=== PATIENT | female | born 1950 | race American Indian/Alaskan Native ===

== ENCOUNTER 2016-08-28 20:32 | Emergency (ER) | payer MEDICARE ==
[2016-08-28 20:49] VITALS: BP 156/81
[2016-08-29] MEDS ORDERED: TYLENOL #3 PO ONE (01:00)
--- NOTE | 2016-08-29 01:10 | Emergency Department Report ---
Chief Complaint: Skin/Abscess/Foreign Body Stated Complaint: ABSCESS UNDER ARMPIT/L ARM PAIN Time Seen by Provider: 08/29/16 00:15 - HPI History of Present Illness: Patient with Hx of presents with daughter for evaluation of abscess to her right armpit 2-3 weeks. Also would like eval of her right shoulder pain and difficulty lifting it. She reports hx of fracture to the right shoulder and falling on same shoulder 4 weeks ago. - Exam Vital Signs: Vital Signs 08/28/16 20:43 Temperature 99 F Pulse Rate 83 Respiratory 20 Rate Blood Pressure 156/81 O2 Sat by Pulse 99 Oximetry Physical Exam: General: NAD. Extremities: + deformity of RUE. + baseball size abscess to right axilla. + decreased ROM in RUE. MSE screening note: Focused history and physical exam performed. Due to findings the following was ordered: Patient discussed with doctor:: TONIA ELMUS (cancel CT. Get Xray.) ED Medical Decision Making - Medical Decision Making Patient to be seen by Chris in main ED. ED Disposition for MSE Condition: Stable Referrals: PRIMARY CARE, [Primary Care Provider] - 3-5 Days
--- NOTE | 2016-08-29 01:55 | XRay Report ---
FINAL REPORT PROCEDURE: XR CHEST 1V AP TECHNIQUE: Chest radiograph anteroposterior view. CPT 82621 HISTORY: R axilla abscess. COMPARISON: No prior studies are available for comparison. FINDINGS: Heart: Normal. Mediastinum/Vessels: Normal. Lungs/Pleural space: Normal. Bony thorax: No acute osseous abnormality. Life support devices: None. IMPRESSION: No acute cardiopulmonary abnormality.
--- NOTE | 2016-08-29 01:58 | XRay Report ---
FINAL REPORT PROCEDURE: XR HUMERUS 2 RT TECHNIQUE: RIGHT humerus radiographs, AP and lateral views. HISTORY: right shoulder pain/deformity COMPARISON: No prior studies are available for comparison. 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 There is slight angulation of the fracture fragments. 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 Soft tissues: There is generalized soft tissue swelling. There is no mass. Bone mineralization: Normal. Foreign bodies: None. 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 There is slight angulation of the fracture fragments. 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 There is generalized soft tissue swelling. There is no mass.
--- NOTE | 2016-08-29 02:03 | XRay Report ---
FINAL REPORT PROCEDURE: XR SHOULDER 2 RT TECHNIQUE: RIGHT shoulder radiographs including AP views in internal and external rotation. CPT 18550 HISTORY: R shoulder pain/deformity COMPARISON: No prior studies are available for comparison. 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 The glenohumeral joint is intact.. Joint space(s): There is mild degenerative arthrosis of the glenohumeral joint.. Soft tissues: Normal . Bone mineralization: Normal . Foreign bodies: None . 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 The glenohumeral joint is intact.. There is mild degenerative arthrosis of the glenohumeral joint..
[2016-08-29] MEDS ORDERED: XYLOCAINE 2%/ EPI 1:200,000 INFILTRATI ONE (02:05)
[2016-08-29] MEDS ORDERED: XYLOCAINE 2%/EPI 1:100,000 INFILTRATI ONE (02:06)
[2016-08-29] MEDS ORDERED: VIBRAMYCIN PO ONE (03:59)
[2016-08-29] MEDS ORDERED: NORCO 7.5/325 PO ONE (03:59)
[2016-08-29] MEDS ORDERED: BACTRIM DS PO ONE (03:59)
--- NOTE | 2016-08-29 04:06 | Emergency Department Report ---
HPI - General Chief Complaint: Skin/Abscess/Foreign Body Time Seen by Provider: 08/29/16 02:15 - HPI HPI: The patient is a 66-year-old female who presents for evaluation of right axillary pain. The patient reports pain to the right axilla at area of swelling and redness for the past 2 weeks, progressive, 10/10 in severity, burning in quality, exacerbated with movement of the right arm at the shoulder joint. The patient denies fever, neck pain, chest pain, dyspnea, color change in the right arm, paresthesias, or new motor deficit in the right arm. The patient says that she has a chronic long-standing right humeral midshaft fracture for greater than 6 months. ED Past Medical Hx - Past Medical History Hx Hypertension: Yes Hx CVA: Yes (R sided deficits) Hx Diabetes: Yes Hx Arthritis: Yes - Surgical History Past Surgical History?: No - Social History Smoking Status: Never Smoker Substance Use Type: None - Medications Home Medications: Home Medications Medication Instructions Recorded Confirmed Last Taken Type Doxycycline Hyclate [Doxycycline 100 mg PO Q12HR #28 tab 08/29/16 Unknown Rx Hyclate TAB] HYDROcodone/APAP 7.5-325 [[place] 1 each PO Q8HR PRN #20 tablet 08/29/16 Unknown Rx 7.5-325 mg TAB] Sulfamethoxazole/Trimethoprim 1 each PO BID #28 tablet 08/29/16 Unknown Rx [Bactrim DS TAB] ED Review of Systems ROS: Stated complaint: ABSCESS UNDER ARMPIT/L ARM PAIN Other details as noted in HPI Constitutional: denies: fever ENT: denies: throat or neck pain Respiratory: denies: cough, shortness of breath Cardiovascular: denies: chest pain Endocrine: denies unexplained weight loss or gain Gastrointestinal: denies: abdominal pain, nausea Genitourinary: denies: dysuria Musculoskeletal: reports right axillary pain denies: leg swelling Skin: denies: rash Neurological: denies: headache Hematological/Lymphatic: denies: easy bleeding or easy bruising Psych: denies sadness or hopelessness Physical Exam - Physical Exam Vital Signs: Vital Signs 08/28/16 08/29/16 20:43 01:47 Temperature 99 F Pulse Rate 83 Respiratory 20 20 Rate Blood Pressure 156/81 O2 Sat by Pulse 99 Oximetry Physical Exam: General: well-nourished, well-developed, no acute distress Head: Normocephalic, atraumatic Eyes: normal sclera ENT: Mucous membranes are pink and moist Neck: trachea midline, neck supple, No neck stiffness, no cervical adenopathy Respiratory: Breath sounds equal bilaterally, no wheezing, rales, or rhonchi Cardio: S1 and S2 present, no murmurs, rubs, gallops, capillary refill is brisk Abdomen: Normoactive bowel sounds, soft abdomen, no tenderness Musc: 4cm x 2cm tender to palpation area of firmness and redness presents to the right axilla, surrounding erythema is present as well, no fluctuance, no crepitus, no drainage or discharge, no pain in the right shoulder joint Skin: No rash Neuro: no facial drooping, normal speech Psych: Normal affect ED Course Vital Signs 08/28/16 08/29/16 20:43 01:47 Temperature 99 F Pulse Rate 83 Respiratory 20 20 Rate Blood Pressure 156/81 O2 Sat by Pulse 99 Oximetry ED Medical Decision Making - Medical Decision Making Patient was seen and examined by myself. An ultrasound was used to investigate area of redness and swelling. The ultrasound is negative for any drainable pocket of fluid, and demonstrates inflamed adenopathy to the right axilla. The patient is given a tablet of [place] for her pain, and doxycycline and Bactrim for cellulitis and infected lymph node. X-ray of the chest is unremarkable. X- ray of the right humerus reveals midshaft humeral fracture consistent with known previous history. The patient was reevaluated and reported that their symptoms were markedly improved. The patient is stable for discharge with outpatient follow-up. The patient is given follow-up and return instructions. The patient expressed understanding and agreed with the plan. The patient is discharged in stable condition. Critical care attestation.: If time is entered above; I have spent that time in minutes in the direct care of this critically ill patient, excluding procedure time. ED Disposition Clinical Impression: Axillary adenitis, Cellulitis of axilla, right Disposition: DISCHARGED TO HOME OR SELFCARE Is pt being admited?: No Does the pt Need Aspirin: No Condition: Stable Instructions: Lymphadenopathy (ED), Adenitis (ED), Cellulitis (ED) Prescriptions: Doxycycline Hyclate [Doxycycline Hyclate TAB] 100 mg PO Q12HR #28 tab HYDROcodone/APAP 7.5-325 [[place] 7.5-325 mg TAB] 1 each PO Q8HR PRN #20 tablet PRN Reason: Pain Sulfamethoxazole/Trimethoprim [Bactrim DS TAB] 1 each PO BID #28 tablet Referrals: PRIMARY CARE, [Primary Care Provider] - 3-5 Days Time of Disposition: 03:00
== END 2016-08-29 04:55 | disposition home or self-care (01) ==
LOC: ED 20:32
DX: I88.9 Nonspecific lymphadenitis, unspecified (principal); L03.111 Cellulitis of right axilla; I10 Essential (primary) hypertension; I63.9 Cerebral infarction, unspecified; E11.9 Type 2 diabetes mellitus without complications; M19.90 Unspecified osteoarthritis, unspecified site
CPT/HCPCS: 71010